=== PATIENT | male | born 1990 | race Caucasian/White ===

== ENCOUNTER 2018-05-19 13:36 | Emergency (ER) | payer OTHER ==
[~2018-05-19 13:36] MED LIST changes: -CIPR-214 PO; -HYDR-385 PO
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
[2018-05-19] MEDS ORDERED: NS(*) 0.9% 1000 ML BAG 1,000 ML IV ONE (13:44)
[2018-05-19] MEDS ORDERED: IOPAMIDOL 76% 150 ML INFUS BTL 150 ML ONE (13:58)
[2018-05-19 14:03] LABS: INR 1.08
[2018-05-19 14:16] LABS: PLATELET COUNT, AUTOMATED 236 K/uL (150-450)
--- NOTE | 2018-05-19 15:10 | RADIOLOGY IMAGING REPORT ---
FACILITY: [facility] PATIENT NAME: Gregory Jimenez : 1990 MR: [id number] V: [id number] EXAM DATE: ORDERING PHYSICIAN: SHANELL HEBERT TECHNOLOGIST: Location: [facility] [place] Patient: Gregory Jimenez : 1990 Visit/Account:[id number] Date of Sevice: 05/19/2018 CT CHEST ABDOMEN PELVIS W/CON HISTORY: Right-sided rib pain, right lower quadrant abdomen pain ADDITIONAL HISTORY: None. TECHNIQUE: Following administration of IV contrast axial images acquired through the chest abdomen a nd pelvis during the portal venous phase. Coronal and sagittal reformatting was also performed.Dose Lowering Technique One of the following dose optimization techniques was utilized in the performance of this exam: Autom ated exposure control; adjustment of the mA and/or kV according to the patient's size; or use of an i terative reconstruction technique. Specific details can be referenced in the facility's radiology C T exam operational policy. CONTRAST: 75 mL Isovue-370 COMPARISON: March 10, 2016 FINDINGS: CHEST: Lungs/Pleura: Negative. Mediastinum/lymph nodes: There are tiny AP window lymph nodes. There is a 1.1 x 1.2 cm right hilar lymph node Heart/vessels: Negative. Bones/soft tissues: Negative ABDOMEN AND PELVIS: Hepatobiliary: Negative. Spleen: Negative. Pancreas: Negative. Adrenals: Negative. Kidneys ureters and bladder : There is mild focal thickening of the anterior wall the bladder Genitalia: Negative. GI: The esophagus is moderately distended with air and a small amount of fluid. A tubular structur e in the right lower quadrant appears to represent the appendix measuring up to 5 mm in diameter whic h is not dilated. There is marked thickening of numerous loops of small bowel in the left mid and upper abdomen. The b owel does not appear to be obstructed. Vessels/spaces/nodes: Negative. Bones/soft tissues: Negative. Additional findings: None pertinent. IMPRESSION: There is an incidental 1.1 x 1.2 cm right hilar lymph node. There is no evidence of pulmonary infilt rates there for this may simply be incidental.. Mild focal thickening of the anterior wall the bladder. This may be secondary to cystitis although c linical correlation needed Esophagus is moderately distended with air and small amount of fluid. Clinical correlation needed There appears to be the appendix the right lower quadrant does not appear dilated There is marked thickening of numerous loops of small bowel in the left mid and upper abdomen. There is no evidence of bowel obstruction. This may represent enteritis. Clinical correlation needed Report Dictated By: Nery Willis MD at 05/19/2018 2:46 PM Report E-Signed By: Nery Willis MD at 05/19/2018 3:02 PM [email or web address]
[2018-05-19 15:30] VITALS: BP 122/85
[2018-05-19] MEDS ORDERED: CIPR-214 PO (15:51)
[2018-05-19] MEDS ORDERED: ONDA4TAB97 PO (15:51)
[2018-05-19] MEDS ORDERED: HYDR-385 PO (15:51)
--- NOTE | 2018-05-19 16:01 | EKG ---
[place] [facility] [place] NAME: CHRISTIANO CEDILLO : [id number] MR: [id number] V: [id number] EXAM DATE: ORDERING PHYSICIAN: SHANELL HEBERT TECHNOLOGIST: Test Reason : Blood Pressure : / mmHG Vent. Rate : 059 BPM Atrial Rate : 059 BPM P-R Int : 158 ms QRS Dur : 100 ms QT Int : 430 ms P-R-T Axes : 068 065 072 degrees QTc Int : 425 ms Sinus bradycardia with marked sinus arrhythmia Otherwise normal ECG No previous ECGs available Confirmed by PATRICIA VARNER ([id number]) on 05/20/2018 1:14:29 AM Referred By: Confirmed By:PATRICIA VARNER
== END 2018-05-19 16:10 | disposition home or self-care (01) ==
LOC: ER 13:46
DX: K52.9 Noninfective gastroenteritis and colitis, unspecified (principal)
CPT/HCPCS: 71260; 74177; 81001; 82150; 83690; 84484; 85025; 85610; 85730; 86140; 93005; 96360; 96361; 99284; J7030; Q9967; 82040; 82247; 82310; 82374; 82435; 82565; 82947; 84075; 84132; 84155; 84295; 84450; 84460; 84520

== ENCOUNTER → 2018-05-19 | Outpatient (CLI) | payer OTHER ==
[~2018-05-19] MED LIST: ACET-2043 PO; CIPR-214 PO; CYCL10TA29 PO; HYDR-385 PO; NO; ONDA4TAB97 PO; ONDA8TAB94 PO; OXYC-865 PO; OXYC5TAB38 PO; PRO25 PO
== END ==
LOC: AMB 13:27
PROVIDERS: ATTEND Nurse Practitioner
DX: R06.02 Shortness of breath (principal)
CPT/HCPCS: A0425; A0427